=== PATIENT | female | born 1955 | race Caucasian/White ===

== ENCOUNTER 2017-08-30 15:36 | Inpatient (IN) | payer OTHER ==
[~2017-08-30] VITALS: Ht 162.6 cm; Wt 54.1 kg
--- NOTE | ~2017-08-30 | HC ---
[facility] [place] [address] CONSULTATION Name: YARIEL FLORES Room #: [facility] ADM IN M.R.#: [id number] Admission: 08/30/17 Attend Phys: Juan Kerr MD Discharge: Date of : 59 Report #: [id number] THIS REPORT FOR: //name// CC: Juan WAN physician/PCP Colleen SINGH REFERRING PROVIDER: Colleen Avila. REASON FOR CONSULTATION: Respiratory failure. HISTORY OF PRESENT ILLNESS: Our group was asked to see the patient in consultation urgently overnight. The patient admitted with left-sided infiltrates consistent with community-acquired pneumonia, had been failing outpatient levofloxacin. The patient also has a history of tobacco use, probable underlying emphysema or obstructive lung disease requiring supplemental oxygen at 1 liter nasal cannula at home. Some increasing shortness of breath, cough, had been failing outpatient management with levofloxacin, presented to the Emergency Department yesterday evening. Started on Rocephin, azithromycin, bronchodilators. The patient worsened overnight with worsening left-sided infiltrates. Subsequently brought to the ICU, was in respiratory distress despite BiPAP. I have subsequently intubated, placed left subclavian triple lumen catheter to assist with management of what appears to be severe sepsis associated with pneumonia as evidenced by tachycardia, tachypnea and organ failure including respiratory failure. ALLERGIES: INCLUDE CODEINE. PAST MEDICAL HISTORY: Taken from the records due to patient's severe distress. 1. History of tobacco use. 2. Probable chronic obstructive pulmonary disease with associated hypoxemia. 3. History of deafness. 4. Hypothyroidism. 5. Hyperlipidemia. OUTPATIENT MEDICATIONS: Include Flonase, Advair 250/50, Synthroid 0.075, lovastatin 40 mg daily, Singulair 10 mg daily, Zoloft 100 mg daily, Chantix, and trazodone. SOCIAL HISTORY: Active tobacco user. Lives with her mother by report. FAMILY HISTORY: Unobtainable. REVIEW OF SYSTEMS: Otherwise, unobtainable due to her current status. PHYSICAL EXAMINATION: VITAL SIGNS: Temperature is max 100.1, temperature current 98.1, pulse 150s and [facility] [address] [place] [address] CONSULTATION Name: YARIEL FLORES Room #: [facility] IN ..#: [id number] Admission: 08/30/17 Attend Phys: Juan Kerr MD Discharge: Date of : 59 Report #: [id number] regular, in sinus rhythm, respiratory rate 30s, blood pressure 112/73. GENERAL: This is a debilitated, middle-aged woman, severe respiratory distress. ENT: Revealed an edentulous mouth. Very dry oropharynx. Mallampati 1 airway. No thrush. No erythema. NECK: Supple, no lymphadenopathy. LUNGS: Revealed coarse rhonchi throughout, left greater than right with obvious respiratory effort and paradoxical abdominal motion. CARDIOVASCULAR: Heart was tachycardic, but regular. No murmurs noted. CHEST WALL: Revealed 3 small dotted tattoos suggestive of prior radiation treatment. ABDOMEN: Soft, nontender, no masses. Bowel sounds are diminished, but present. EXTREMITIES: Slightly cool, but with 2+ pulses and no edema. NEUROLOGIC: The patient awake, interactive, able to read my written words and move all extremities prior to intubation. LABORATORY DATA: White blood cell count 11,000, hemoglobin 12, hematocrit 37, platelet count 194. Most recent arterial blood gas on BiPAP of 16/02 revealed pH 7.34, pCO2 of 43, pO2 of 258, bicarbonate 22. Chemistry profile essentially normal, done at 1954. No coagulation profile performed. IMAGING: Chest x-ray reveals dense left lung infiltrate, hyperinflation consistent with COPD. IMPRESSION: 1. Sepsis as evidenced by hypotension, tachycardia, respiratory failure related to pneumonia. 2. Multilobar pneumonia, failing outpatient therapy with Levaquin. 3. Underlying chronic obstructive pulmonary disease with exacerbation. 4. History of tobacco use. 5. Deafness. SUGGESTIONS: 1. Sepsis protocol. 2. Broaden now antimicrobial coverage to add vancomycin and piperacillin and tazobactam. 3. Ask Infectious Disease to consult. 4. Await cultures. 5. Urinary pneumococcal and legionella antigen tests. 6. Supportive care with mechanical ventilation and ICU care. 7. Additional recommendations to follow. Please see orders. Total critical care time, not including procedures 60 minutes. <ELECTRONICALLY SIGNED> By: Ash Carbajal MD 09/07/17 1726 0120 0419 Ash Carbajal MD /nt
--- NOTE | ~2017-08-30 | P ---
[facility] [place] [address] PROCEDURE REPORT Name: YARIEL FLORES Room #: 237-P ADM IN M.R.#: [id number] Admission: 08/30/17 Attend Phys: Juan Kerr MD Discharge: Date of : 59 Report #: [id number] THIS REPORT FOR: //name// CC: Juan Kerr [facility] physician/PCP PROCEDURE: Emergent intubation. INDICATION: Severe hypoxemic respiratory failure. PROCEDURE NOTATION: Called urgently to the bedside to evaluate the patient. The patient in respiratory distress despite BiPAP. The patient was placed in recumbent position and given 20 mg of etomidate. Adequate sedation achieved with this. Using a MAC 4 blade in an edentulous mouth, grade 1 view of the vocal cords was noted. Thin brown secretions were noted throughout the pharynx and around the vocal cords. A 7.5 endotracheal tube was easily advanced 22 cm at the gumline. Positive Easy Cap color change and bilateral breath sounds. Chest x-ray confirmed good location, all on the first attempt, and was secured in this position. <ELECTRONICALLY SIGNED> By: Ash Carbajal MD 09/07/17 1726 0122 0428 Ash Carbajal MD /nt
--- NOTE | ~2017-08-30 | 2DMMODE ---
[facility] [place] [address] 2 D/M-MODE ECHOCARDIOGRAM Name: YARIEL FLORES MARIO Room #: 237-P ADM IN M.R.#: [id number] Admission: 08/30/17 Attend Phys: Juan Kerr MD Discharge: Date of : 59 Date of Service: 09/01/17 1501 Report #: [id number] THIS REPORT FOR: //name// APPROVED REPORT Study performed: 09/01/2017 10:29:36 EXAM: Comprehensive 2D, Doppler, and color-flow Echocardiogram Patient Location: ICU Room #: [facility] Status: on-call BSA: 1.73 HR: 116 bpm BP: 97/67 mmHg Rhythm: Tachycardia Other Information Study Quality: Fair/low parasternal windows/limited measurments. Technically limited study due to poor windows, poor patient cooperation. On vent.. Indications Respiratory failure, hypotension, sepsis. COPD. 2D Dimensions LVEF(%): 55.53 (>50%) IVSd: 6.57 (7-11mm) LVOT Diam: 18.60 (18-24mm) LVDd: 47.21 mm PWd: 7.98 (7-11mm) LVDs: 33.57 (25-40mm) Aortic Root: 28.48 mm Mccoy's LVEF: 55.53 % Aortic Valve AoV Peak Chucky.: 1.42 m/s AO Peak Gr.: 8.09 mmHg LVOT Max P.56 mmHg LVOT Max V: 1.18 m/s SLAVA Vmax: 2.25 cm2 Pulmonary Valve PV Peak Chucky.: 0.99 m/s PV Peak Gr.: 3.89 mmHg Tricuspid Valve TR Peak Chucky.: 3.52 m/s RAP Estimate: 10.00 mmHg [facility] [place] [place] [address] 2 D/M-MODE ECHOCARDIOGRAM Name: YARIEL FLORES Room #: [facility] ADM IN M.R.#: [id number] Admission: 08/30/17 Attend Phys: Juan Kerr MD Discharge: Date of : 59 Date of Service: 09/01/17 1501 Report #: [id number] TR Peak Gr.: 49.59 mmHg PA Pressure: 60.00 mmHg Left Ventricle The left ventricle is normal size. There is normal left ventricular wall thickness. The left ventricular systolic function is low normal. LVEF is 50%. This study is not technically sufficient to allow evaluation of the LV diastolic function. Right Ventricle The right ventricle is normal size. The right ventricular systolic function is normal. Atria The left atrium size is normal. The right atrium size is normal. Aortic Valve Aortic valve leaflets are mildly thickened. No aortic regurgitation is present. There is no aortic valvular stenosis. Mitral Valve The mitral valve is normal in structure. Mild mitral regurgitation. Tricuspid Valve The tricuspid valve is normal in structure. Mild to moderate tricuspid regurgitation. Estimated PAP is 60mmHg. Pulmonic Valve The pulmonary valve is normal in structure. There is no pulmonic valvular regurgitation. Great Vessels The aortic root is normal in size. IVC is normal in size and collapses <50% with inspiration. Pericardium There is no pericardial effusion. <Conclusion> The left ventricle is normal size. LVEF is 50%. Aortic valve leaflets are mildly thickened. No aortic regurgitation is present. There is no aortic valvular stenosis. [facility] [place] [address] 2 D/M-MODE ECHOCARDIOGRAM Name: YARIEL FLORES Room #: 237-P ADM IN M.R.#: [id number] Admission: 08/30/17 Attend Phys: Juan Kerr MD Discharge: Date of : 59 Date of Service: 09/01/17 1501 Report #: [id number] The mitral valve is normal in structure. Mild mitral regurgitation. The tricuspid valve is normal in structure. Mild to moderate tricuspid regurgitation. Estimated PAP is 60mmHg. The pulmonary valve is normal in structure. The aortic root is normal in size. There is no pericardial effusion. <ELECTRONICALLY SIGNED> By: Josesito Santiago MD 09/01/17 1501 150 1501 Josesito Santiago MD /INF
--- NOTE | ~2017-08-30 | EKG ---
[address] [place] [address] ELECTROCARDIOGRAM REPORT Name: YARIEL FLORES Room #: 237- ADM IN M.R.#: [id number] Admission: 08/30/17 Attend Phys: Juan Kerr MD Discharge: Date of : 59 Report #: [id number] THIS REPORT FOR: //name// [facility] Test Date: 2017-08-31 Test Time: 19:44:25 Pat Name: YARIEL FLORES Department: Room: 237 Gender: F Maintenance Groundskeeper: Jeremi WATTS : 1955 Requested By: Juan Kerr Order Number: [id number] MD: Kyaw Gabriel Measurements Intervals [place] Rate: 140 P: 72 SD: 125 QRS: 69 QRSD: 85 T: -58 QT: 293 QTc: 447 Interpretive Statements Sinus tachycardia Nonspecific ST and T wave abnormality Compared to ECG 08/30/2017 16:15:02 No significant changes Electronically Signed On 09-02-2017 14:04:52 COOPER HELPER by Kyaw Gabriel [email or web address] <ELECTRONICALLY SIGNED> By: Kyaw Gabriel MD, [facility] 09/02/17 1404 43 43 Kyaw Gabriel MD, [facility] /EPI
--- NOTE | ~2017-08-30 | P ---
[facility] [place] [address] PROCEDURE REPORT Name: YARIEL FLORES Room #: 237-P ADM IN M.R.#: [id number] Admission: 08/30/17 Attend Phys: Juan Kerr MD Discharge: Date of : 59 Report #: [id number] THIS REPORT FOR: //name// CC: Juan Kerr [facility] physician/PCP DATE OF SERVICE: 09/01/2017 PROCEDURE: Left subclavian triple lumen catheter insertion. INDICATION: Severe sepsis, need for central venous access. The patient will need multiple fluids, antibiotics and vasopressors. PROCEDURE NOTATION: Because there was left-sided dense pneumonia, left-side was chosen for subclavian line insertion, was cleansed with 2% chlorhexidine gluconate. Using maximal barrier method including full body, eye sheet, mask, gown, hat, and gloves, the patient received 4 mL of 1% lidocaine for topical anesthesia on the first attempt using an infraclavicular approach. Subclavian vein was easily accessed with the introducer needle. J-wire was then advanced and the needle removed. A small dermotomy was made with the scalpel blade and using Seldinger technique, dilator was advanced over the wire and then removed and then a triple lumen catheter inserted at 19 cm. This was sutured in place and dressed with a Biopatch and clear OpSite. Chest x-ray confirmed good position in the superior vena cava with no pneumothorax at the end of procedure. <ELECTRONICALLY SIGNED> By: Ash Carbajal MD 09/07/17 1726 0123 0438 Ash Carbajal MD /nt
--- NOTE | ~2017-08-30 | HC ---
[facility] [place] [address] CONSULTATION Name: YARIEL FLORES Room #: [facility]- ADM IN M.R.#: [id number] Admission: 08/30/17 Attend Phys: Juan Kerr MD Discharge: Date of : 59 Report #: [id number] THIS REPORT FOR: //name// CC: Juan Kerr [facility] physician/PCP DATE OF SERVICE: 09/01/2017 ATTENDING PHYSICIAN: Dr. Kerr. REASON FOR EVALUATION: Severe pneumonitis, complicated by respiratory failure, early sepsis. HISTORY OF PRESENT ILLNESS: Chart reviewed, patient examined. This is a 62-year-old with history of deafness, presented on 08/30 with complaints of cough, progressive dyspnea, chest discomfort. She did note she was producing purulent, greenish blood-tinged sputum. Actually on evaluation as outpatient, started on levofloxacin without benefit. She does have an associated generalized myalgias as well, had some low-grade temperature elevations. She was admitted, initiated on empiric therapy; however, she got acutely dyspneic and required a rapid response. Ultimately, she was transitioned to the ICU, was emergently intubated. Now, she resides on the ventilator. She is not responsive due to sedation. Blood cultures are negative thus far. The influenza antigen was negative for nasopharyngeal sampling. Sputum cultures pending. Chest x-ray does raise question of a left-sided mass associated with a fairly dense infiltrate. ALLERGIES: CODEINE. CURRENT MEDICATIONS: Include vancomycin, p.r.n. analgesics, antiemetics. She is on propofol, Zosyn, azithromycin as well. PAST MEDICAL HISTORY: Fairly unremarkable other than the deafness. SOCIAL HISTORY: Former smoker. FAMILY HISTORY: Noncontributory. REVIEW OF SYSTEMS: Not obtainable. PHYSICAL EXAMINATION: GENERAL: She is sedated, on the vent. She has got an endotracheal tube in place. She has had a Mclean catheter in place as well. HEENT: Marked for the above. NECK: Supple. LUNGS: Scattered coarse breath sounds. [facility] [address] [place] [address] CONSULTATION Name: YARIEL FLORES Room #: 237-P [facility] IN .R.#: [id number] Admission: 08/30/17 Attend Phys: Juan Kerr MD Discharge: Date of : 59 Report #: [id number] HEART: Appeared to be regular. She is tachycardic. I cannot discern a murmur. ABDOMEN: Soft. There are no appreciable peritoneal signs. GENITOURINARY AND RECTAL: Deferred. LABORATORY DATA: Chest x-ray as noted above, extensive left lung infiltrate, small effusion, possible mass. Lactic acid 1.7 initially. Influenza antigen was negative. Electrolytes: Sodium 140, potassium 3.4, chloride 105, bicarbonate is 24, BUN and creatinine 16 and 0.9. LFTs unremarkable. Albumin of 3.5, total protein 6.8, estimated GFR of 64. CBC: White count 13.1, H and H 13.7 and 39.9, platelets of 215. NT-proBNP was 572. Blood cultures collected on are sterile thus far. Most recent ABG from this morning, pH 7.262, pCO2 of 42.1, pO2 of 165.8 and was on 80% FiO2. Procalcitonin is 4.03. Fibrinogen 511.3, upper limits of normal of 360. ASSESSMENT: Left-sided pneumonitis, perhaps associated with a pulmonary mass in the setting of severe community-acquired pneumonia. It is reasonable to continue empiric antimicrobial therapy, more often a gram-positive etiology, see how she does clinically. Sputum culture has been ordered, await those results. Continue efforts to wean, may ultimately need some sort of procedural evaluation to better define. <ELECTRONICALLY SIGNED> By: Rohan Fernandez MD 09/02/17 0422 0541 0900 Rohan Fernandez MD /nt
--- NOTE | ~2017-08-30 | EKG ---
[address] [place] [address] ELECTROCARDIOGRAM REPORT Name: YARIEL FLORES Room #: 421-P ADM IN M.R.#: [id number] Admission: 08/30/17 Attend Phys: Juan Kerr MD Discharge: Date of : 59 Report #: [id number] THIS REPORT FOR: //name// [facility] ED Test Date: 2017-08-30 Test Time: 16:15:02 Pat Name: YARIEL FLORES Department: Room: [facility] Gender: F Seating And Mobility Technologist: MZOOK : 1955 Requested By: Dulce Mcdaniel Order Number: [id number] MD: Roberth La Measurements Intervals [place] Rate: 116 P: 74 AL: 141 QRS: 59 QRSD: 67 T: 61 QT: 367 QTc: 510 Interpretive Statements Sinus tachycardia Borderline T abnormalities, anterior leads No previous ECG available for comparison Electronically Signed On 08-31-2017 8:26:50 BANKRUPTCY PROCESSOR by Roberth La [email or web address] <ELECTRONICALLY SIGNED> By: Roberth La MD 08/31/17 0826 1615 1615 Roberth La MD /[place]
[2017-08-30 15:37] VITALS: BP 107/51
[2017-08-30 16:09] LABS: HEMATOCRIT 39.9 % (37.0-47.0); HEMOGLOBIN 13.7 gm/dL (12.0-15.0); MCH 30.6 pg (26.0-34.0); MCHC 34.3 g/dL (28.0-37.0); MCV 89.2 fL (80.0-100.0); PLATELET COUNT 215 thou/uL (150-400); RBC 4.47 mil/uL (4.20-5.00); RDW 12.8 % (10.5-14.5); WBC 13.1 thou/uL (4.0-11.0)
[2017-08-30 16:35] LABS: ANION GAP 11 mmol/L (7-16); BUN 16 mg/dL (7-18); CALCIUM 9.5 mg/dL (8.5-10.1); CHLORIDE 105 mmol/L (98-107); CO2 24 mmol/L (21-32); CREATININE 0.9 mg/dL (0.6-1.0); GLUCOSE 105 mg/dL (74-106); POTASSIUM 3.4 mmol/L (3.5-5.1); SODIUM 140 mmol/L (136-145)
[2017-08-30 16:43] LABS: ALBUMIN 3.5 g/dL (3.4-5.0); SGOT 14 U/L (15-37); SGPT 21 U/L (30-65); TOTAL PROTEIN 6.8 g/dL (6.4-8.2); TROPONIN-I < 0.04 ng/mL (<0.06)
[2017-08-30 17:05] LABS: ABSOLUTE NEUTROPHILS 11.8 thou/uL (1.4-8.2)
[2017-08-30 17:07] LABS: ANISOCYTOSIS SLIGHT
[2017-08-30 18:33] VITALS: BP 110/77
[2017-08-30 19:21] VITALS: BP 105/57
[2017-08-30 19:48] VITALS: BP 112/62
[2017-08-30] MEDS ORDERED: FLONASE 0.05%50 MCG NASAL (22:55)
[2017-08-30] MEDS ORDERED: LOVASTATIN40 MG PO (22:55)
[2017-08-30] MEDS ORDERED: CHANTIX0.5 MG PO (22:56)
[2017-08-30] MEDS ORDERED: TRAZODONE HCL50 MG PO (22:57)
[2017-08-30] MEDS ORDERED: LEVAQUIN 250 M250 MG PO (22:57)
[2017-08-30] MEDS ORDERED: SYNTHROID75 MCG PO (22:58)
[2017-08-30] MEDS ORDERED: SINGULAIR 10 MG10 M1 PO (22:59)
[2017-08-30] MEDS ORDERED: ADVAIR 250-501 EACH INH (22:59)
[2017-08-30] MEDS ORDERED: SERTRALINE HCL100 MG PO (22:59)
[2017-08-31] VITALS (10 sets, daily range): BP systolic 10–112; BP diastolic 53–78
[2017-08-31 06:13] LABS: HEMATOCRIT 37.1 % (37.0-47.0); HEMOGLOBIN 12.5 gm/dL (12.0-15.0); MCH 30.8 pg (26.0-34.0); MCHC 33.8 g/dL (28.0-37.0); MCV 91.2 fL (80.0-100.0); RBC 4.07 mil/uL (4.20-5.00); WBC 10.9 thou/uL (4.0-11.0)
[2017-08-31 06:27] LABS: CALCIUM 8.6 mg/dL (8.5-10.1); CREATININE 0.9 mg/dL (0.6-1.0); POTASSIUM 3.8 mmol/L (3.5-5.1)
[2017-08-31 20:03] LABS: BE(vivo) -3.7 mmol/L (-2 to +3); HCO3 20.9 mmol/L (22.0-26.0); PCO2 36.4 mmHg (35.0-45.0); PO2 74.5 mmHg (80.0-100.0); pH 7.377 (7.360-7.450); sO2 94.8 % (92.0-98.0)
[2017-08-31 20:14] LABS: ANION GAP 8 mmol/L (7-16); BUN 14 mg/dL (7-18); CALCIUM 8.8 mg/dL (8.5-10.1); CHLORIDE 109 mmol/L (98-107); CO2 24 mmol/L (21-32); CREATININE 0.7 mg/dL (0.6-1.0); GLUCOSE 99 mg/dL (74-106); POTASSIUM 3.7 mmol/L (3.5-5.1); SODIUM 141 mmol/L (136-145)
[2017-08-31 20:22] LABS: TROPONIN-I < 0.04 ng/mL (<0.06)
[2017-08-31 23:10] LABS: BE(vivo) -3.5 mmol/L (-2 to +3); HCO3 22.3 mmol/L (22.0-26.0); PCO2 42.7 mmHg (35.0-45.0); PO2 258.3 mmHg (80.0-100.0); pH 7.335 (7.360-7.450); sO2 99.6 % (92.0-98.0)
[2017-09-01] VITALS (40 sets, daily range): BP systolic 92–163; BP diastolic 62–101
[2017-09-01 01:58] LABS: BE(vivo) -7.1 mmol/L (-2 to +3); PO2 288.2 mmHg (80.0-100.0); sO2 99.5 % (92.0-98.0)
[2017-09-01 01:59] LABS: pH 7.216 (7.360-7.450)
[2017-09-01 02:22] LABS: HEMATOCRIT 37.8 % (37.0-47.0); HEMOGLOBIN 12.5 gm/dL (12.0-15.0); MCH 30.3 pg (26.0-34.0); MCV 91.9 fL (80.0-100.0); PLATELET COUNT 209 thou/uL (150-400); RBC 4.11 mil/uL (4.20-5.00); RDW 13.1 % (10.5-14.5); WBC 12.1 thou/uL (4.0-11.0)
[2017-09-01 02:29] LABS: CALCIUM 8.1 mg/dL (8.5-10.1); CREATININE 0.8 mg/dL (0.6-1.0)
[2017-09-01 02:33] LABS: ALBUMIN 2.1 g/dL (3.4-5.0); TOTAL PROTEIN 5.2 g/dL (6.4-8.2)
[2017-09-01 02:35] LABS: APTT 31.8 Seconds (24.5-32.8); INR 1.2; PROTIME 12.3 Seconds (9.3-11.4)
[2017-09-01 03:16] LABS: ABSOLUTE NEUTROPHILS 10.3 thou/uL (1.4-8.2); ATYPICAL LYMPHS 1 %; METAMYELOCYTES 2 %; MYELOCYTES 3 %
[2017-09-01 05:29] LABS: BE(vivo) -8.1 mmol/L (-2 to +3); HCO3 18.6 mmol/L (22.0-26.0); PCO2 42.1 mmHg (35.0-45.0); PO2 165.8 mmHg (80.0-100.0); sO2 98.9 % (92.0-98.0)
[2017-09-01 05:30] LABS: pH 7.262 (7.360-7.450)
[2017-09-01 06:10] LABS: CALCIUM 7.9 mg/dL (8.5-10.1); CREATININE 0.7 mg/dL (0.6-1.0); POTASSIUM 4.2 mmol/L (3.5-5.1)
[2017-09-01 06:52] LABS: HEMATOCRIT 36.2 % (37.0-47.0); HEMOGLOBIN 12.2 gm/dL (12.0-15.0); MCH 30.7 pg (26.0-34.0); MCHC 33.6 g/dL (28.0-37.0); MCV 91.4 fL (80.0-100.0); PLATELET COUNT 192 thou/uL (150-400); RBC 3.96 mil/uL (4.20-5.00); RDW 13.5 % (10.5-14.5); WBC 10.3 thou/uL (4.0-11.0)
[2017-09-01 07:15] LABS: URINE BILIRUBIN NEGATIVE (Negative); URINE BLOOD 2+ (Negative); URINE CLARITY CLEAR; URINE COLOR YELLOW; URINE GLUCOSE-RANDOM* NEGATIVE (Negative); URINE KETONES NEGATIVE (Negative); URINE LEUKOCYTES-REFLEX NEGATIVE (Negative); URINE NITRITE-REFLEX NEGATIVE (Negative); URINE PROTEIN (DIPSTICK) NEGATIVE (Negative); URINE SPECIFIC GRAVITY >= 1.030 (1.005-1.035); URINE UROBILINOGEN 0.2 E.U./dl (0.2-1.0)
[2017-09-01 07:23] LABS: CASTS None Seen /LPF (None Seen); CRYSTALS None Seen /LPF (None Seen); MUCUS 0-3 Light strn/LPF (None Seen); SQUAMOUS 0-3 Few /LPF (0-3); URINE RBC >20 Many /HPF (0-2); URINE WBC-REFLEX 0-5 Rare /HPF (0-5)
[2017-09-01 07:24] LABS: BACTERIA-REFLEX None Seen /HPF (None Seen)
[2017-09-01 10:16] LABS: ABSOLUTE NEUTROPHILS 8.5 thou/uL (1.4-8.2); METAMYELOCYTES 2 %; MYELOCYTES 1 %
[2017-09-01 10:17] LABS: ANISOCYTOSIS SLIGHT
[2017-09-01 11:31] LABS: CREATININE 0.6 mg/dL (0.6-1.0); POTASSIUM 3.8 mmol/L (3.5-5.1)
[2017-09-01 14:14] LABS: CREATININE 0.6 mg/dL (0.6-1.0); POTASSIUM 3.6 mmol/L (3.5-5.1)
[2017-09-01 14:49] LABS: BE(vivo) -7.4 mmol/L (-2 to +3); HCO3 17.6 mmol/L (22.0-26.0); PCO2 33.7 mmHg (35.0-45.0); PO2 150.4 mmHg (80.0-100.0); pH 7.335 (7.360-7.450); sO2 98.8 % (92.0-98.0)
[2017-09-02] VITALS (50 sets, daily range): BP systolic 102–161; BP diastolic 64–101
[2017-09-02 05:10] LABS: HEMATOCRIT 31.2 % (37.0-47.0); HEMOGLOBIN 10.7 gm/dL (12.0-15.0); MCH 31.1 pg (26.0-34.0); MCHC 34.2 g/dL (28.0-37.0); MCV 90.8 fL (80.0-100.0); PLATELET COUNT 183 thou/uL (150-400); RBC 3.43 mil/uL (4.20-5.00); RDW 12.9 % (10.5-14.5); WBC 10.9 thou/uL (4.0-11.0)
[2017-09-02 05:16] LABS: CALCIUM 8.7 mg/dL (8.5-10.1); CREATININE 0.6 mg/dL (0.6-1.0); POTASSIUM 3.3 mmol/L (3.5-5.1)
[2017-09-02 11:23] LABS: ABSOLUTE NEUTROPHILS 10.2 thou/uL (1.4-8.2); METAMYELOCYTES 2 %
[2017-09-02 11:26] LABS: ANISOCYTOSIS 1+
[2017-09-02 11:54] LABS: BE(vivo) -2.5 mmol/L (-2 to +3); HCO3 22.3 mmol/L (22.0-26.0); PCO2 38.6 mmHg (35.0-45.0); PO2 80.3 mmHg (80.0-100.0); pH 7.379 (7.360-7.450); sO2 95.7 % (92.0-98.0)
[2017-09-03] VITALS (47 sets, daily range): BP systolic 107–151; BP diastolic 60–113
[2017-09-03 04:58] LABS: BE(vivo) -2.6 mmol/L (-2 to +3); HCO3 22.1 mmol/L (22.0-26.0); PCO2 38.1 mmHg (35.0-45.0); PO2 94.2 mmHg (80.0-100.0); pH 7.382 (7.360-7.450); sO2 97.1 % (92.0-98.0)
[2017-09-03 05:45] LABS: HEMATOCRIT 29.2 % (37.0-47.0); HEMOGLOBIN 9.8 gm/dL (12.0-15.0); MCH 30.4 pg (26.0-34.0); MCHC 33.5 g/dL (28.0-37.0); MCV 90.7 fL (80.0-100.0); PLATELET COUNT 183 thou/uL (150-400); RBC 3.22 mil/uL (4.20-5.00); RDW 12.9 % (10.5-14.5); WBC 13.5 thou/uL (4.0-11.0)
[2017-09-03 06:05] LABS: ALBUMIN 1.6 g/dL (3.4-5.0); CALCIUM 8.2 mg/dL (8.5-10.1); CREATININE 0.5 mg/dL (0.6-1.0); MAGNESIUM 2.2 mg/dL (1.8-2.4); POTASSIUM 3.2 mmol/L (3.5-5.1); TOTAL BILIRUBIN 0.4 mg/dL (<0.1-1.0); TOTAL PROTEIN 5.1 g/dL (6.4-8.2)
[2017-09-03 06:19] LABS: ABSOLUTE NEUTROPHILS 11.6 thou/uL (1.4-8.2); NUCLEATED RBCS 1 /100WBC
[2017-09-03 10:24] LABS: BE(vivo) -2.2 mmol/L (-2 to +3); HCO3 22.6 mmol/L (22.0-26.0); PCO2 38.5 mmHg (35.0-45.0); PO2 117.7 mmHg (80.0-100.0); pH 7.386 (7.360-7.450); sO2 98.3 % (92.0-98.0)
[2017-09-04] VITALS (47 sets, daily range): BP systolic 87–162; BP diastolic 56–112
[2017-09-04 04:46] LABS: HEMATOCRIT 31.9 % (37.0-47.0); HEMOGLOBIN 10.8 gm/dL (12.0-15.0); MCH 30.8 pg (26.0-34.0); MCV 90.6 fL (80.0-100.0); PLATELET COUNT 187 thou/uL (150-400); RBC 3.52 mil/uL (4.20-5.00); RDW 13.4 % (10.5-14.5); WBC 16.4 thou/uL (4.0-11.0)
[2017-09-04 04:48] LABS: CALCIUM 8.5 mg/dL (8.5-10.1); CREATININE 0.5 mg/dL (0.6-1.0); POTASSIUM 3.9 mmol/L (3.5-5.1)
[2017-09-04 05:25] LABS: BE(vivo) 1.7 mmol/L (-2 to +3); HCO3 27.1 mmol/L (22.0-26.0); PCO2 45.5 mmHg (35.0-45.0); PO2 71.4 mmHg (80.0-100.0); pH 7.393 (7.360-7.450); sO2 94.2 % (92.0-98.0)
[2017-09-04 08:33] LABS: ABSOLUTE NEUTROPHILS 12.3 thou/uL (1.4-8.2); METAMYELOCYTES 7 %
[2017-09-04 08:34] LABS: ANISOCYTOSIS SLIGHT
[2017-09-04 23:06] LABS: ADENOVIRUS Negative (Negative); INFLUENZA A Negative (Negative); INFLUENZA B Negative (Negative); METAPNEUMOVIRUS Negative (Negative); PARAINFLUENZA 1 Negative (Negative); PARAINFLUENZA 2 Negative (Negative); PARAINFLUENZA 3 Negative (Negative); RHINOVIRUS Negative (Negative); RSV A Negative (Negative); RSV B Negative (Negative)
[2017-09-05] VITALS (42 sets, daily range): BP systolic 107–175; BP diastolic 48–118
[2017-09-05 05:05] LABS: HEMATOCRIT 31.3 % (37.0-47.0); HEMOGLOBIN 10.5 gm/dL (12.0-15.0); MCH 30.3 pg (26.0-34.0); MCHC 33.7 g/dL (28.0-37.0); MCV 89.9 fL (80.0-100.0); PLATELET COUNT 193 thou/uL (150-400); RBC 3.48 mil/uL (4.20-5.00); RDW 12.8 % (10.5-14.5); WBC 17.8 thou/uL (4.0-11.0)
[2017-09-05 05:17] LABS: CALCIUM 8.3 mg/dL (8.5-10.1); CREATININE 0.4 mg/dL (0.6-1.0); POTASSIUM 3.7 mmol/L (3.5-5.1)
[2017-09-05 06:57] LABS: ABSOLUTE NEUTROPHILS 14.6 thou/uL (1.4-8.2); ANISOCYTOSIS SLIGHT; METAMYELOCYTES 5 %; NUCLEATED RBCS 1 /100WBC
[2017-09-06] VITALS (31 sets, daily range): BP systolic 83–164; BP diastolic 60–105
[2017-09-06 04:45] LABS: CALCIUM 8.4 mg/dL (8.5-10.1); CREATININE 0.4 mg/dL (0.6-1.0); POTASSIUM 3.7 mmol/L (3.5-5.1)
[2017-09-06 04:49] LABS: HEMATOCRIT 33.1 % (37.0-47.0); HEMOGLOBIN 11.1 gm/dL (12.0-15.0); MCH 30.2 pg (26.0-34.0); MCHC 33.6 g/dL (28.0-37.0); MCV 90.1 fL (80.0-100.0); PLATELET COUNT 207 thou/uL (150-400); RBC 3.68 mil/uL (4.20-5.00); RDW 12.7 % (10.5-14.5); WBC 23.1 thou/uL (4.0-11.0)
[2017-09-06 05:24] LABS: BE(vivo) 4.5 mmol/L (-2 to +3); HCO3 28.9 mmol/L (22.0-26.0); PO2 68.6 mmHg (80.0-100.0); pH 7.455 (7.360-7.450); sO2 94.5 % (92.0-98.0)
[2017-09-06 09:03] LABS: ABSOLUTE NEUTROPHILS 18.7 thou/uL (1.4-8.2); METAMYELOCYTES 2 %; MYELOCYTES 1 %
[2017-09-06 09:04] LABS: ANISOCYTOSIS SLIGHT; POLYCHROMASIA OCCASIONAL
[2017-09-07] VITALS (46 sets, daily range): BP systolic 100–170; BP diastolic 61–114
[2017-09-07 04:03] LABS: HEMATOCRIT 32.7 % (37.0-47.0); HEMOGLOBIN 10.9 gm/dL (12.0-15.0); MCH 30.2 pg (26.0-34.0); MCHC 33.2 g/dL (28.0-37.0); MCV 90.8 fL (80.0-100.0); RBC 3.6 mil/uL (4.20-5.00); RDW 12.6 % (10.5-14.5); WBC 21.7 thou/uL (4.0-11.0)
[2017-09-07 04:29] LABS: CALCIUM 8.3 mg/dL (8.5-10.1); CREATININE 0.4 mg/dL (0.6-1.0); MAGNESIUM 1.8 mg/dL (1.8-2.4); POTASSIUM 4.3 mmol/L (3.5-5.1)
[2017-09-07 09:09] LABS: MAGNESIUM 1.8 mg/dL (1.8-2.4)
[2017-09-08] VITALS (55 sets, daily range): BP systolic 77–155; BP diastolic 41–85
[2017-09-08 05:05] LABS: HEMATOCRIT 35.1 % (37.0-47.0); HEMOGLOBIN 11.7 gm/dL (12.0-15.0); MCH 30.1 pg (26.0-34.0); MCHC 33.4 g/dL (28.0-37.0); MCV 90.2 fL (80.0-100.0); RBC 3.9 mil/uL (4.20-5.00); RDW 12.5 % (10.5-14.5); WBC 26.2 thou/uL (4.0-11.0)
[2017-09-08 05:18] LABS: CALCIUM 8.7 mg/dL (8.5-10.1); CREATININE 0.5 mg/dL (0.6-1.0); MAGNESIUM 1.8 mg/dL (1.8-2.4); POTASSIUM 3.4 mmol/L (3.5-5.1)
[2017-09-08 05:32] LABS: BE(vivo) 5.2 mmol/L (-2 to +3); PO2 129.4 mmHg (80.0-100.0); pH 7.442 (7.360-7.450); sO2 98.7 % (92.0-98.0)
[2017-09-09] VITALS (37 sets, daily range): BP systolic 75–159; BP diastolic 49–99
[2017-09-09 05:21] LABS: BE(vivo) 7.5 mmol/L (-2 to +3); HCO3 31.8 mmol/L (22.0-26.0); PCO2 43.4 mmHg (35.0-45.0); PO2 99.1 mmHg (80.0-100.0); pH 7.483 (7.360-7.450); sO2 97.9 % (92.0-98.0)
[2017-09-09 05:57] LABS: HEMATOCRIT 34.2 % (37.0-47.0); HEMOGLOBIN 11.5 gm/dL (12.0-15.0); MCH 30.6 pg (26.0-34.0); MCHC 33.6 g/dL (28.0-37.0); RBC 3.75 mil/uL (4.20-5.00); RDW 12.6 % (10.5-14.5); WBC 20.8 thou/uL (4.0-11.0)
[2017-09-09 06:10] LABS: CALCIUM 8.4 mg/dL (8.5-10.1); CREATININE 0.4 mg/dL (0.6-1.0); MAGNESIUM 2.1 mg/dL (1.8-2.4); POTASSIUM 3.7 mmol/L (3.5-5.1)
[2017-09-09 13:45] LABS: BE(vivo) 3.7 mmol/L (-2 to +3); PCO2 41.3 mmHg (35.0-45.0); PO2 87.8 mmHg (80.0-100.0); pH 7.449 (7.360-7.450)
[2017-09-10] VITALS (16 sets, daily range): BP systolic 115–153; BP diastolic 48–88
[2017-09-10 06:11] LABS: HEMATOCRIT 32.8 % (37.0-47.0); MCH 30.7 pg (26.0-34.0); MCHC 33.5 g/dL (28.0-37.0); MCV 91.9 fL (80.0-100.0); PLATELET COUNT 302 thou/uL (150-400); RBC 3.57 mil/uL (4.20-5.00); RDW 12.7 % (10.5-14.5)
[2017-09-10 06:30] LABS: CALCIUM 8.3 mg/dL (8.5-10.1); CREATININE 0.5 mg/dL (0.6-1.0); POTASSIUM 3.6 mmol/L (3.5-5.1)
[2017-09-10 09:04] LABS: ABSOLUTE NEUTROPHILS 11.2 thou/uL (1.4-8.2); METAMYELOCYTES 2 %
[2017-09-10 13:20] LABS: BE(vivo) 5.6 mmol/L (-2 to +3); HCO3 29.9 mmol/L (22.0-26.0); PCO2 42.3 mmHg (35.0-45.0); PO2 96.6 mmHg (80.0-100.0); pH 7.467 (7.360-7.450); sO2 97.7 % (92.0-98.0)
[2017-09-11] VITALS (24 sets, daily range): BP systolic 100–162; BP diastolic 55–92
[2017-09-11 04:31] LABS: HEMATOCRIT 36.2 % (37.0-47.0); HEMOGLOBIN 11.9 gm/dL (12.0-15.0); MCH 29.8 pg (26.0-34.0); MCHC 32.9 g/dL (28.0-37.0); MCV 90.5 fL (80.0-100.0); PLATELET COUNT 360 thou/uL (150-400); RDW 12.8 % (10.5-14.5); WBC 18.7 thou/uL (4.0-11.0)
[2017-09-11 04:35] LABS: CALCIUM 8.2 mg/dL (8.5-10.1); CREATININE 0.4 mg/dL (0.6-1.0); POTASSIUM 3.4 mmol/L (3.5-5.1)
[2017-09-12] VITALS (10 sets, daily range): BP systolic 104–133; BP diastolic 65–88
[2017-09-13 04:56] VITALS: BP 109/64
[2017-09-13 10:26] VITALS: BP 126/67
[2017-09-13] MEDS ORDERED: VANCOMYCIN HCL10 GM PO (12:32)
[2017-09-13] MEDS ORDERED: ZYVOX600 MG/300 IVPB (12:48)
== END 2017-09-13 13:35 | DRG 870 ==
LOC: ER 15:36 → 4E 17:16 → EROBS 17:16 → 4E 19:23 → ICU 08-31 22:38 → 4N 09-12 08:52
PROVIDERS: Family Medicine; Hospitalist; Internal Medicine; Internal Medicine Pulmonary Disease; Nurse Practitioner Acute Care; Physician Assistant
PROC: 5A1955Z Respiratory Ventilation, Greater than 96 Consecutive Hours (ICD-10-PCS; principal; 2017-09-01)
PROC: 02HV33Z Insertion of Infusion Device into Superior Vena Cava, Percutaneous Approach (ICD-10-PCS; 2017-09-01)
PROC: 0BH17EZ Insertion of Endotracheal Airway into Trachea, Via Natural or Artificial Opening (ICD-10-PCS; 2017-09-01)
DX: A41.9 Sepsis, unspecified organism (principal); J96.01 Acute respiratory failure with hypoxia; J18.1 Lobar pneumonia, unspecified organism; J44.1 Chronic obstructive pulmonary disease with (acute) exacerbation; E87.0 Hyperosmolality and hypernatremia; A04.72 Enterocolitis due to Clostridium difficile, not specified as recurrent; J98.4 Other disorders of lung; I95.9 Hypotension, unspecified; H91.90 Unspecified hearing loss, unspecified ear; E87.6 Hypokalemia; A49.02 Methicillin resistant Staphylococcus aureus infection, unspecified site; Z79.899 Other long term (current) drug therapy; Z87.891 Personal history of nicotine dependence; Z88.6 Allergy status to analgesic agent
CPT/HCPCS: 10078; 10183; 10790